=== PATIENT | male | born 1965 | race Caucasian/White ===

== ENCOUNTER → 2022-02-25 | Outpatient (CLI) | payer OTHER, SELFPAY ==
--- NOTE | 2022-02-25 10:08 | RAD_ITS ---
INDICATION: OSTEOARTHRITIS EXAMINATION/TECHNIQUE: X-RAY - BILATERAL XR Hips Bilateral with Pelvis when performed; 2 Views COMPARISON: None. FINDINGS: PELVIC BONES: No displaced fracture, destructive or sclerotic lesions. Note that overlapping bowel shadows may however obscure fine detail. Sacroiliac joints are unremarkable. No widening of the pubic symphysis. HIPS: The articular structures are unremarkable. No displaced fracture seen in this frontal view. SOFT TISSUES: No soft tissue swelling or gas. RAD/Hips B/L min 2 views w/ Pelvis IMPRESSION: No evidence of displaced pelvic or hip fracture. Electronically Signed: Nikhil Morales MD at 11:14 EDT ,
== END | disposition home or self-care (01) ==
DX: M16.0 Bilateral primary osteoarthritis of hip (principal)
CPT/HCPCS: 73521